=== PATIENT | male | born 1945 | race Caucasian/White ===

== ENCOUNTER 2023-10-07 06:29 | Inpatient (IN) | payer MEDICARE, OTHER ==
[2023-09-28 14:18] LABS: BASOPHILS # (AUTO) 0.1 X10'3 (0-0.2); EOSINOPHILS # (AUTO) 0.1 X10'3 (0-0.9); EOSINOPHILS % (AUTO) 2.2 % (0-6); LYMPHOCYTES # (AUTO) 2.1 X10'3 (1.1-4.8); MEAN CORPUSCULAR HEMOGLOBIN 31.6 PG (27.0-31.0); MEAN CORPUSCULAR HGB CONC 33.9 g/dL (33.0-36.5); MEAN CORPUSCULAR VOLUME 93.2 FL (78-98); MEAN PLATELET VOLUME 8.3 FL (7.4-10.4); MONOCYTES # (AUTO) 0.6 X10'3 (0-0.9); MONOCYTES % (AUTO) 9.8 % (2-12); NEUTROPHILS # (AUTO) 3.3 X10'3 (1.8-7.7); PRE OP HEMATOCRIT 46.4 % (42.0-52.0); PRE OP HEMOGLOBIN 15.7 g/dL (14.0-17.9); PRE OP PLATELET COUNT 222 X10'3 (140-440); PRE OP WHITE BLOOD COUNT 6.3 10'3 (4.8-10.8); RED BLOOD COUNT 4.97 X10'6 (4.70-6.10); RED CELL DISTRIBUTION WIDTH 13.6 % (11.5-14.5)
[2023-09-28 14:30] LABS: ALBUMIN 4.4 G/DL (3.4-5.0); ALBUMIN/GLOBULIN RATIO 1.6 (1.1-1.5); ALKALINE PHOSPHATASE 30 IU/L (46-116); BLOOD UREA NITROGEN 15 MG/DL (7-18); BUN/CREATININE RATIO 14.7 (10.0-20.0); CALCIUM 9.4 MG/DL (8.5-10.1); CHLORIDE 108 MMOL/L (99-107); CREATININE 1.02 MG/DL (0.60-1.10); PRE OP ALT 50 U/L (30-65); PRE OP ANION GAP 6 (8-16); PRE OP AST 23 U/L (10-37); PRE OP BILIRUB, TOTAL 1.1 MG/DL (0.0-1.0); PRE OP GLUCOSE 158 MG/DL (70-104); PRE OP POTASSIUM 4.1 MMOL/L (3.4-5.1); PRE OP SODIUM 142 MMOL/L (135-145); TOTAL CARBON DIOXIDE 28.1 MMOL/L (24-32); TOTAL PROTEIN 7.1 G/DL (6.4-8.2); eGFR 70 ML/MIN
[~2023-10-07] VITALS: Ht 170.2 cm; Wt 93.0 kg
[2023-10-07] VITALS (25 sets, daily range): BP systolic 106–173; BP diastolic 57–92; PULSE 59–91; RESP 11–19; TEMP 97.2–99.6; O2SAT 92–97
[2023-10-07] MEDS: cefazolin 2gm/D5W 100mL 100 ML IV ONE (05:30)
[2023-10-07] MEDS: tranexamic acid inj. 1,000 MG in normal saline IV soln 100ML IV ONE (05:30)
[2023-10-07] MEDS: DOCUMENT DATE & TIME OF BETA-BLOCKER PO ONE (05:30)
[~2023-10-07 06:29] MED LIST: ACET-1995 PO; AMLO2.5T2 PO; ASHW500C PO; CHOL100046 PO; CYAN50007 PO; FINA5TAB11 PO; FLUT16SP BOTHNARES; GABA-530 PO; LACT1CAP65 PO; LORA2TAB96 PO; MAGN400T39 PO; METO25TA6 PO; PANT40TA54 PO; SERT50TA PO; SIMV-45 PO; TUMERIC PO; UBID100C16 PO; ZINC220T3 PO
[2023-10-07] MEDS: ringers solution, lacted 1,000 ML IV SCH (08:02)
[2023-10-07] MEDS: famotidine 20mg tablet PO ONE (08:02)
[2023-10-07] MEDS: vancomycin 1,500 MG in NS 300ml IV soln IV ONE (08:02)
[2023-10-07] MEDS ORDERED: sevoflurane 250ml liquid IH ONE (08:35)
[2023-10-07] MEDS: BUPIVACAINE liposomal/PF 13.3 MG/ML vial IM ONE (08:45)
[2023-10-07] MEDS: BUPIVAcaine/PF 5 mg/ml 10ml ONE (08:45)
[2023-10-07] MEDS ORDERED: HYDROmorphone 1 mg/ml syringe ONE (09:35)
[2023-10-07] MEDS: BUPIVACAINE/MELOXICAM 14 ML VIAL IL ONE ×2 (11:43→12:12)
[2023-10-07] MEDS: ROPIVAcaine 0.5% (5mg/ml) 30ml vial ONE (12:03)
[2023-10-07] MEDS: morphine 10mg/ml inj. ONE (12:04)
[2023-10-07] MEDS: epiNEPHrine 1 mg/ml inj ONE (12:04)
[2023-10-07] MEDS: vancomycin 1,000mg inj ONE (12:05)
[2023-10-07] MEDS ORDERED: acetaminophen 325mg tablet PO PRN (13:15)
[2023-10-07] MEDS ORDERED: diphenhydrAMINE 25mg capsule PO PRN (13:15)
[2023-10-07] MEDS ORDERED: naloxone 0.4 mg/ml inj IV PRN (13:15)
[2023-10-07] MEDS ORDERED: ondansetron/PF 4mg/2ml inj IV PRN (13:15)
[2023-10-07] MEDS ORDERED: HYDROmorphone 1 mg/ml syringe IV PRN (13:15)
[2023-10-07] MEDS: oxyCODONE IR 5mg (immed. release) tablet PO PRN ×2 (14:44→20:38)
[2023-10-07] MEDS: acetaminophen 325mg tablet PO SCH (15:00)
[2023-10-07] MEDS: ceFAZolin/D5W- 1GM premix 50 ML IV SCH (16:16)
[2023-10-07] MEDS: tranexamic acid inj. 1,000 MG in normal saline 100ml IV soln 90 ML IV ONE (16:18)
[2023-10-07] MEDS: potassium Cl 20mEq in NS 1,000 ML IV SCH (16:20)
[2023-10-07] MEDS: sennosides 8.6mg tablet PO SCH (20:38)
[2023-10-07] MEDS: gabapentin 300mg capsule PO SCH (20:38)
[2023-10-07] MEDS: vancomycin/NS 1 GM ADD-VANTAGE 250 ML IV SCH (20:39)
[2023-10-07] MEDS: diphenhydrAMINE 25mg capsule PO PRN (20:39)
[2023-10-08] VITALS (9 sets, daily range): BP systolic 118–147; BP diastolic 62–79; PULSE 82–108; RESP 16–18; TEMP 98.7–100.4; O2SAT 92–97
[2023-10-08] MEDS: HYDROmorphone inj. 0.5 MG/0.5 ML DISP.SYRIN IV PRN (01:28)
[2023-10-08] MEDS: enoxaparin 40mg/0.4ml syringe SQ SCH (07:47)
[2023-10-08] MEDS: LORazepam 1 MG tablet PO SCH (07:47)
[2023-10-08] MEDS: lactobacillus rhamnosus 10,000 MMU CELLS/CAPSULE PO SCH (07:48)
[2023-10-08] MEDS: magnesium oxide 400mg tablet PO SCH (07:48)
[2023-10-08] MEDS: metoprolol tartrate 25mg tablet PO SCH (07:48)
[2023-10-08] MEDS: pantoprazole 40mg Tablet.DR PO SCH (07:49)
[2023-10-08] MEDS: sertraline 50mg tablet PO SCH (07:49)
[2023-10-08] MEDS: zinc sulfate 220mg capsule PO SCH (07:49)
[2023-10-08] MEDS: cyanocobalamin 500mcg tablet PO SCH (07:58)
[2023-10-08] MEDS ORDERED: METOPROLOL TARTRATE 50 MG PO SCH (08:00)
[2023-10-08] MEDS ORDERED: ACETAMINOPHEN 500 MG PO SCH (08:00)
[2023-10-08 08:49] LABS: ALANINE AMINOTRANSFERASE 29 U/L (12-78); ALBUMIN 3.5 G/DL (3.4-5.0); ALBUMIN/GLOBULIN RATIO 1.2 (1.1-1.5); ALKALINE PHOSPHATASE 22 IU/L (46-116); ANION GAP 8 (8-16); ASPARTATE AMINO TRANSFERASE 21 U/L (10-37); BILIRUBIN,TOTAL 1.8 MG/DL (0.1-1.0); BLOOD UREA NITROGEN 15 MG/DL (7-18); BUN/CREATININE RATIO 14.9 (10.0-20.0); CALCIUM 8.5 MG/DL (8.5-10.1); CHLORIDE 105 MMOL/L (99-107); CREATININE 1.01 MG/DL (0.60-1.10); GLUCOSE 146 MG/DL (70-104); POTASSIUM 4.2 MMOL/L (3.5-5.1); SODIUM 136 MMOL/L (135-145); TOTAL CARBON DIOXIDE 22.9 MMOL/L (24-32); TOTAL PROTEIN 6.4 G/DL (6.4-8.2); eCRCL 55 ML/MIN; eGFR 71 ML/MIN
[2023-10-08] MEDS: fluticasone nasal spray 16GM bottle NS PRN (08:57)
[2023-10-08] MEDS ORDERED: APIX2.5T PO (11:19)
[2023-10-08] MEDS ORDERED: HYDR-3965 PO (11:22)
[2023-10-08 17:02] LABS: BASOPHILS % (AUTO) 0.5 % (0-1); EOSINOPHILS % (AUTO) 0.2 % (0-6); HEMOGLOBIN 12.6 g/dl (14.0-17.9); LYMPHOCYTES # (AUTO) 1.1 X10'3 (1.1-4.8); MEAN CORPUSCULAR HEMOGLOBIN 31.6 PG (27.0-31.0); MEAN PLATELET VOLUME 7.8 FL (7.4-10.4); MONOCYTES # (AUTO) 1.2 X10'3 (0-0.9); MONOCYTES % (AUTO) 12.9 % (2-12); NEUTROPHILS # (AUTO) 6.7 X10'3 (1.8-7.7); NEUTROPHILS % (AUTO) 74.4 % (42-75); PLATELET COUNT 164 X10'3 (140-440); RED BLOOD COUNT 3.97 X10'6 (4.70-6.10); RED CELL DISTRIBUTION WIDTH 13.3 % (11.5-14.5); WHITE BLOOD COUNT 9.1 X10'3 (4.5-11.0)
[2023-10-08 17:12] LABS: ALANINE AMINOTRANSFERASE 28 U/L (12-78); ALBUMIN 3.2 G/DL (3.4-5.0); ALBUMIN/GLOBULIN RATIO 1.1 (1.1-1.5); ALKALINE PHOSPHATASE 23 IU/L (46-116); ANION GAP 9 (8-16); ASPARTATE AMINO TRANSFERASE 21 U/L (10-37); BILIRUBIN,TOTAL 1.8 MG/DL (0.1-1.0); BLOOD UREA NITROGEN 15 MG/DL (7-18); BUN/CREATININE RATIO 14.2 (10.0-20.0); CALCIUM 8.2 MG/DL (8.5-10.1); CHLORIDE 107 MMOL/L (99-107); CREATININE 1.06 MG/DL (0.60-1.10); GLUCOSE 136 MG/DL (70-104); POTASSIUM 4.1 MMOL/L (3.5-5.1); SODIUM 141 MMOL/L (135-145); TOTAL CARBON DIOXIDE 24.7 MMOL/L (24-32); eCRCL 52 ML/MIN; eGFR 67 ML/MIN
[2023-10-08] MEDS ORDERED: guaiFENesin/DM/phenylephrine syrup 120ml bottle PO PRN (17:30)
[2023-10-08] MEDS ORDERED: guaiFENesin/DM 10ml UD oral syrup PO PRN (17:50)
[2023-10-08 18:09] LABS: BILIRUBIN,URINE NEGATIVE (Neg); CLARITY,URINE CLEAR (Clear); COLOR,URINE YELLOW (Yellow); GLUCOSE, URINE NEGATIVE (Neg); KETONES,URINE NEGATIVE (Neg); LEUKOCYTE ESTERASE ,URINE NEGATIVE (Neg); NITRITES, URINE NEGATIVE (Neg); OCCULT BLOOD,URINE NEGATIVE (Neg); PH,URINE 6.5 (4.8-8.0); PROTEIN,URINE NEGATIVE (Neg); UROBILINOGEN,URINE 0.2 E.U/dL (0.2-1.0)
[2023-10-08 18:20] LABS: UA COLLECTION TYPE CLN CATCH MIDSTREAM
[2023-10-08] MEDS: celeCOXIB 100mg capsule PO SCH (20:12)
[2023-10-08] MEDS: gabapentin 100mg capsule PO SCH (20:14)
[2023-10-08] MEDS: simvastatin 20mg tablet PO SCH (20:15)
[2023-10-08] MEDS: finasteride 5mg tablet PO SCH (20:15)
[2023-10-08] MEDS: amLODIPine 5mg tablet PO SCH (20:15)
[2023-10-09] VITALS (7 sets, daily range): BP systolic 94–149; BP diastolic 53–86; PULSE 77–121; RESP 16–18; TEMP 97–99.7; O2SAT 93–94
[2023-10-09 06:06] LABS: BASOPHILS % (AUTO) 0.4 % (0-1); EOSINOPHILS # (AUTO) 0.1 X10'3 (0-0.9); EOSINOPHILS % (AUTO) 1.5 % (0-6); HEMATOCRIT 34.8 % (42.0-52.0); HEMOGLOBIN 11.8 g/dl (14.0-17.9); LYMPHOCYTES # (AUTO) 1.3 X10'3 (1.1-4.8); LYMPHOCYTES % (AUTO) 15.2 % (21-51); MEAN CORPUSCULAR HEMOGLOBIN 31.7 PG (27.0-31.0); MEAN CORPUSCULAR VOLUME 93.3 FL (78-98); MEAN PLATELET VOLUME 8.1 FL (7.4-10.4); MONOCYTES # (AUTO) 1.1 X10'3 (0-0.9); MONOCYTES % (AUTO) 12.5 % (2-12); NEUTROPHILS # (AUTO) 6.2 X10'3 (1.8-7.7); NEUTROPHILS % (AUTO) 70.4 % (42-75); PLATELET COUNT 141 X10'3 (140-440); RED BLOOD COUNT 3.73 X10'6 (4.70-6.10); RED CELL DISTRIBUTION WIDTH 13.1 % (11.5-14.5); WHITE BLOOD COUNT 8.8 X10'3 (4.5-11.0)
[2023-10-09 06:33] LABS: ALANINE AMINOTRANSFERASE 24 U/L (12-78); ALBUMIN 2.8 G/DL (3.4-5.0); ALKALINE PHOSPHATASE 18 IU/L (46-116); ANION GAP 8 (8-16); ASPARTATE AMINO TRANSFERASE 19 U/L (10-37); BILIRUBIN,TOTAL 1.9 MG/DL (0.1-1.0); BLOOD UREA NITROGEN 17 MG/DL (7-18); BUN/CREATININE RATIO 18.1 (10.0-20.0); CALCIUM 8.5 MG/DL (8.5-10.1); CHLORIDE 109 MMOL/L (99-107); CREATININE 0.94 MG/DL (0.60-1.10); GLUCOSE 117 MG/DL (70-104); SODIUM 143 MMOL/L (135-145); TOTAL CARBON DIOXIDE 26.2 MMOL/L (24-32); TOTAL PROTEIN 5.6 G/DL (6.4-8.2); eCRCL 59 ML/MIN; eGFR 77 ML/MIN
[2023-10-09] MEDS ORDERED: acetaminophen 325mg tablet PO PRN (13:15)
[2023-10-10] VITALS (13 sets, daily range): BP systolic 104–152; BP diastolic 60–87; PULSE 65–106; RESP 18–24; TEMP 97.4–98.7; O2SAT 93–98
[2023-10-10 04:35] LABS: BASOPHILS % (AUTO) 0.5 % (0-1); EOSINOPHILS # (AUTO) 0.2 X10'3 (0-0.9); EOSINOPHILS % (AUTO) 2.9 % (0-6); HEMATOCRIT 31.2 % (42.0-52.0); HEMOGLOBIN 10.6 g/dl (14.0-17.9); LYMPHOCYTES # (AUTO) 1.5 X10'3 (1.1-4.8); LYMPHOCYTES % (AUTO) 17.5 % (21-51); MEAN CORPUSCULAR HEMOGLOBIN 31.6 PG (27.0-31.0); MONOCYTES # (AUTO) 0.7 X10'3 (0-0.9); MONOCYTES % (AUTO) 8.8 % (2-12); NEUTROPHILS # (AUTO) 5.9 X10'3 (1.8-7.7); NEUTROPHILS % (AUTO) 70.3 % (42-75); PLATELET COUNT 140 X10'3 (140-440); RED BLOOD COUNT 3.35 X10'6 (4.70-6.10); RED CELL DISTRIBUTION WIDTH 13.4 % (11.5-14.5); WHITE BLOOD COUNT 8.4 X10'3 (4.5-11.0)
[2023-10-10 04:52] LABS: ALBUMIN 2.6 G/DL (3.4-5.0); ANION GAP 3 (8-16); BLOOD UREA NITROGEN 19 MG/DL (7-18); CALCIUM 8.6 MG/DL (8.5-10.1); CHLORIDE 107 MMOL/L (99-107); GLUCOSE 140 MG/DL (70-104); POTASSIUM 3.8 MMOL/L (3.5-5.1); PRO BRAIN NATRIURETIC PEPTIDE 887 PG/ML (0-450); SODIUM 138 MMOL/L (135-145); TOTAL CARBON DIOXIDE 28.1 MMOL/L (24-32); eCRCL 55 ML/MIN; eGFR 72 ML/MIN
[2023-10-10 07:10] LABS: ALANINE AMINOTRANSFERASE 27 U/L (12-78); ALBUMIN 2.7 G/DL (3.4-5.0); ALBUMIN/GLOBULIN RATIO 0.8 (1.1-1.5); ALKALINE PHOSPHATASE 27 IU/L (46-116); ANION GAP 7 (8-16); ASPARTATE AMINO TRANSFERASE 20 U/L (10-37); BILIRUBIN,TOTAL 0.9 MG/DL (0.1-1.0); BLOOD UREA NITROGEN 19 MG/DL (7-18); CALCIUM 8.5 MG/DL (8.5-10.1); CHLORIDE 107 MMOL/L (99-107); CREATININE 0.95 MG/DL (0.60-1.10); GLUCOSE 150 MG/DL (70-104); POTASSIUM 3.6 MMOL/L (3.5-5.1); SODIUM 139 MMOL/L (135-145); TOTAL CARBON DIOXIDE 24.8 MMOL/L (24-32); TOTAL PROTEIN 6.2 G/DL (6.4-8.2); eCRCL 58 ML/MIN; eGFR 76 ML/MIN
[2023-10-10] MEDS: albuterol 2.5 MG/3 ML nebule NEB PRN (10:03)
[2023-10-10] MEDS: furosemide 20MG tablet PO SCH (11:04)
[2023-10-10] MEDS: traMADol 50MG tablet PO PRN (20:39)
[2023-10-11] VITALS (11 sets, daily range): BP systolic 114–155; BP diastolic 51–79; PULSE 64–117; RESP 16–24; TEMP 97.8–98.7; O2SAT 88–96
[2023-10-11 05:59] LABS: BASOPHILS # (AUTO) 0.1 X10'3 (0-0.2); BASOPHILS % (AUTO) 0.7 % (0-1); EOSINOPHILS # (AUTO) 0.4 X10'3 (0-0.9); EOSINOPHILS % (AUTO) 4.7 % (0-6); HEMATOCRIT 31.8 % (42.0-52.0); HEMOGLOBIN 10.6 g/dl (14.0-17.9); LYMPHOCYTES # (AUTO) 1.3 X10'3 (1.1-4.8); LYMPHOCYTES % (AUTO) 17.4 % (21-51); MEAN CORPUSCULAR HEMOGLOBIN 31.6 PG (27.0-31.0); MEAN CORPUSCULAR HGB CONC 33.4 g/dL (33.0-36.5); MEAN CORPUSCULAR VOLUME 94.5 FL (78-98); MEAN PLATELET VOLUME 8.7 FL (7.4-10.4); MONOCYTES % (AUTO) 13.2 % (2-12); NEUTROPHILS # (AUTO) 4.9 X10'3 (1.8-7.7); PLATELET COUNT 185 X10'3 (140-440); RED BLOOD COUNT 3.36 X10'6 (4.70-6.10); RED CELL DISTRIBUTION WIDTH 12.9 % (11.5-14.5); WHITE BLOOD COUNT 7.7 X10'3 (4.5-11.0)
[2023-10-11 06:12] LABS: ALANINE AMINOTRANSFERASE 31 U/L (12-78); ALBUMIN 2.5 G/DL (3.4-5.0); ALBUMIN/GLOBULIN RATIO 0.7 (1.1-1.5); ALKALINE PHOSPHATASE 44 IU/L (46-116); ANION GAP 6 (8-16); ASPARTATE AMINO TRANSFERASE 24 U/L (10-37); BILIRUBIN,TOTAL 1.4 MG/DL (0.1-1.0); BLOOD UREA NITROGEN 18 MG/DL (7-18); BUN/CREATININE RATIO 22.8 (10.0-20.0); CALCIUM 8.6 MG/DL (8.5-10.1); CHLORIDE 108 MMOL/L (99-107); CREATININE 0.79 MG/DL (0.60-1.10); GLUCOSE 110 MG/DL (70-104); POTASSIUM 3.8 MMOL/L (3.5-5.1); SODIUM 141 MMOL/L (135-145); TOTAL CARBON DIOXIDE 26.6 MMOL/L (24-32); TOTAL PROTEIN 6.1 G/DL (6.4-8.2); eCRCL 70 ML/MIN; eGFR > 90 ML/MIN
[2023-10-11] MEDS: ipratropium/albuterol 3ml nebule NEB PRN (09:23)
[2023-10-11] MEDS: magnesium hydroxide 30ml (MOM) UD suspension PO PRN (16:18)
[2023-10-11] MEDS: bisacodyl 10mg suppository rectal RC PRN (18:13)
[2023-10-12] VITALS (7 sets, daily range): BP systolic 117–135; BP diastolic 45–82; PULSE 51–101; RESP 14–20; TEMP 97.4–98; O2SAT 95
[2023-10-12 06:24] LABS: BASOPHILS % (AUTO) 0.8 % (0-1); EOSINOPHILS # (AUTO) 0.3 X10'3 (0-0.9); EOSINOPHILS % (AUTO) 4.7 % (0-6); HEMATOCRIT 31.7 % (42.0-52.0); HEMOGLOBIN 10.7 g/dl (14.0-17.9); LYMPHOCYTES # (AUTO) 1.4 X10'3 (1.1-4.8); LYMPHOCYTES % (AUTO) 22.9 % (21-51); MEAN CORPUSCULAR HGB CONC 33.8 g/dL (33.0-36.5); MEAN CORPUSCULAR VOLUME 94.6 FL (78-98); MEAN PLATELET VOLUME 8.1 FL (7.4-10.4); MONOCYTES # (AUTO) 0.9 X10'3 (0-0.9); MONOCYTES % (AUTO) 14.9 % (2-12); NEUTROPHILS # (AUTO) 3.6 X10'3 (1.8-7.7); NEUTROPHILS % (AUTO) 56.7 % (42-75); PLATELET COUNT 223 X10'3 (140-440); RED BLOOD COUNT 3.35 X10'6 (4.70-6.10); RED CELL DISTRIBUTION WIDTH 12.8 % (11.5-14.5); WHITE BLOOD COUNT 6.3 X10'3 (4.5-11.0)
[2023-10-12 06:47] LABS: ALANINE AMINOTRANSFERASE 77 U/L (12-78); ALBUMIN 2.5 G/DL (3.4-5.0); ALBUMIN/GLOBULIN RATIO 0.7 (1.1-1.5); ALKALINE PHOSPHATASE 99 IU/L (46-116); ANION GAP 8 (8-16); ASPARTATE AMINO TRANSFERASE 54 U/L (10-37); BILIRUBIN,TOTAL 1.8 MG/DL (0.1-1.0); BLOOD UREA NITROGEN 20 MG/DL (7-18); BUN/CREATININE RATIO 24.1 (10.0-20.0); CALCIUM 8.7 MG/DL (8.5-10.1); CHLORIDE 106 MMOL/L (99-107); CREATININE 0.83 MG/DL (0.60-1.10); GLUCOSE 113 MG/DL (70-104); POTASSIUM 3.8 MMOL/L (3.5-5.1); SODIUM 140 MMOL/L (135-145); TOTAL CARBON DIOXIDE 26.4 MMOL/L (24-32); TOTAL PROTEIN 6.3 G/DL (6.4-8.2); eCRCL 66 ML/MIN; eGFR 89 ML/MIN
== END 2023-10-12 12:55 | DRG 469 ==
LOC: PAS IN 06:29 → ORTHO 4S 15:19
PROVIDERS: ADMIT Orthopaedic Surgery; ATTEND Orthopaedic Surgery
PROC: 0SRC0J9 Replacement of Right Knee Joint with Synthetic Substitute, Cemented, Open Approach (ICD-10-PCS; principal; 2023-10-07 08:35)
DX: M17.11 Unilateral primary osteoarthritis, right knee (principal); G92.8 Other toxic encephalopathy; E78.5 Hyperlipidemia, unspecified; I10 Essential (primary) hypertension; F41.9 Anxiety disorder, unspecified; Z20.822 Contact with and (suspected) exposure to COVID-19; M21.261 Flexion deformity, right knee; M21.161 Varus deformity, not elsewhere classified, right knee; G47.33 Obstructive sleep apnea (adult) (pediatric); E11.9 Type 2 diabetes mellitus without complications; N40.0 Benign prostatic hyperplasia without lower urinary tract symptoms; I95.1 Orthostatic hypotension; R41.0 Disorientation, unspecified
CPT/HCPCS: 36415; 71045; 73560; 80048; 80053; 81003; 82948; 83880; 85025; 87081; 87811; 92508; 92616; 94640; 94760; 97110; 97116; 97161; 97530; A4215; A4349; A4615; A4649; A6253; A6446; A6449; A6454; A6590; A7000; C1713; C1758; C1776; C9250; C9290; G0378; J0171; J0665; J0690; J1170; J1650; J2274; J2704; J2795; J3370; J3480; J3490; J7120; Q0163